=== PATIENT | female | born 1990 | race Caucasian/White ===

== ENCOUNTER 2017-05-13 06:03 | Day surgery (SDC) | payer MEDICAID ==
[~2017-05-13] VITALS: Ht 154.9 cm; Wt 52.2 kg
--- NOTE | 2017-05-13 08:22 | Operative Note ---
Procedure/Operative Record Procedure Date of procedure: 05/13/17 Pre-Op Dx: Desire for sterilization Post-Op Dx: Desire for sterilization Procedure performed: Laparoscopic bilateral salpingectomy Surgeon: Dr. Trevon oLpez Clinical Leader(s): None Anesthesia: Tung Lucho EBL (ml): 25 Clinical note: She is a 26-year-old 2 para 2 young lady who expressed desire for sterilization. The risks and benefits as well as the irreversibility of bilateral salpingectomy were discussed with the patient prior surgery. Operative findings: She had a normal-appearing pelvis. The RIGHT tube appeared normal. The LEFT tube appeared to be closed at the distal end. It's not clear whether she had infection as result of her previous appendicitis. She had a small adhesion from the distal end of the cecum to the anterior bowel wall. This was taken down with Harmonic scalpel. The rest of the abdomen appeared completely normal. The upper abdomen appeared normal. Operative note: She was taken to the operating room where general anesthesia was found be adequate. She was prepped and draped in the normal sterile fashion in the semi- lithotomy position. A weighted speculum was placed in vagina and the anterior lip of the cervix was grasped with a tenaculum. Mcgowan dilators were used to dilate the cervix to approximately 4 mm. A Maria Luisa uterine manipulator was then placed through the cervical os into the uterine cavity. The balloon was insufflated. I injected approximately 10 mL of 0.5 percent ropivacaine around the umbilicus and made a small incision within the umbilicus. I then inserted a Veress needle into the abdominal cavity. The abdominal cavity was then insufflated with carbon dioxide gas to a pressure of 20 mmHg. I then injected through and through the pubic hairline, made a small incision here and once again inserted an 8 mm trocar under direct vision. I identified the inferior epigastric arteries on the LEFT side and went lateral to these. I injected through and through and then inserted a 5 mm trocar under direct vision. The RIGHT tube was grasped and cut across the tube close to the cornua. I then grasped the distal end of the tube and using Harmonic scalpel cut across the meso salpinx. The tube was then removed through the 8 mm trocar site. On the patient's LEFT side I once again cut across the tube at the cornua. I then started at the cornua and cut along the meso salpinx to the distal end. This was also removed through the 8 mm trocar site. I then elected to cut the small adhesion close to the anterior abdominal wall. I then injected approximately 30 mL of 0.5 percent ropivacaine into the pelvis. The secondary trochars were removed under direct vision. The sites were hemostatic. The gas was let out of the abdomen and once again hemostasis was assured. The primary trocar was then removed. The 8 mm trocar site was closed first deeply with 2-0 Vicryl suture. The skin was closed with subcuticular 4-0 Monocryl suture. The 5 mm trocar sites were closed with subcuticular 4-0 Monocryl suture. Sterile dressings were applied. The patient tolerated the procedure well and was taken to the recovery room in excellent condition. All sponge instrument and needle counts were correct. The estimated blood loss was less than 25 mL. Conplications: None Specimens: Bilateral fallopian tubes at [id number]
--- NOTE | 2017-05-13 08:25 | Anesthesia Record ---
Anesthesia Record Part II Discharge time: 08 Destination: Same day surgery PACU nurse assessment review? Yes Patient is: Stable Anesthesia complications? No at [id number]
--- NOTE | 2017-05-13 08:25 | Anesthesia Record ---
Anesthesia Record Part I Total IV fluids: 250 EBL (ml): 20 Urine Output: 100 B/P: 124/79 % SaO2: 99 Pulse: 64 Resps: 18 Temp: 98.1 Patient is: Drowsy, Stable Stable to PACU at: 0820 at 0824
[2017-05-13 10:49] VITALS: BP 111/69
== END 2017-05-13 10:00 | disposition home or self-care (01) ==
LOC: SDC 06:03
PROVIDERS: Nurse Practitioner Obstetrics & Gynecology
PROC: 0UT74ZZ Resection of Bilateral Fallopian Tubes, Percutaneous Endoscopic Approach (ICD-10-PCS; principal; 2017-05-13 07:30)
DX: Z30.2 Encounter for sterilization (principal)